=== PATIENT | female | born 2000 | race Hispanic/Latino ===

== ENCOUNTER → 2023-07-28 | Emergency (ER) | payer BC, MEDICAID ==
[~2023-07-28] VITALS: Ht 160 cm; Wt 81.6 kg
[~2023-07-28] MED LIST: ACET-2079 PO
[2023-07-28 14:53] VITALS: BP 128/75; PULSE 82; RESP 20
== END | disposition left against medical advice (07) ==
LOC: EDH 14:51
DX: G89.18 Other acute postprocedural pain (principal); R51.9 Headache, unspecified; Z53.21 Procedure and treatment not carried out due to patient leaving prior to being seen by health care provider